=== PATIENT | male | born 1990 | race Caucasian/White ===

== ENCOUNTER 2016-11-27 07:10 | Emergency (ER) | payer OTHER ==
[~2016-11-27] VITALS: Ht 185.4 cm; Wt 78.2 kg
[~2016-11-27 07:10] MED LIST: QUET1TAB34 PO
[2016-11-27 07:15] VITALS: TEMP 36.8; Ht 185.4 cm; Wt 78.2 kg
[2016-11-27] MEDS ORDERED: XYLOCAINE 1%/SOD BICARB 20 ML VIAL INFIL ONE (07:30)
--- NOTE | 2016-11-27 07:37 | EMERGENCY ROOM VISIT NOTE ---
ED Visit Note First contact with patient: 07:16 CHIEF COMPLAINT: Finger laceration HISTORY OF PRESENT ILLNESS: This 26-year-old male patient presents to the emergency department ambulatory after cutting the right fifth finger just prior to arrival when he slipped and caught his finger on a metal shower ye. The bleeding has stopped. Denies weakness or numbness of the finger. The patient has full range of motion of the fingers. The patient denies any pain. The patient denies any other injuries. The patient's tetanus shot is up to date. REVIEW OF SYSTEMS: A 6 system review of systems was completed with positives and pertinent negatives listed in the HPI. ALLERGIES: No known drug allergies MEDICATIONS: Seroquel PMH: None SOCIAL HISTORY: The patient lives locally. He does not smoke PHYSICAL EXAM: Vital Signs: Reviewed Nurse's notes, vital signs stable. GENERAL : This is a 26-year-old male, in no acute distress, well developed, well nourished. SKIN: There is a 1 cm long flap-like laceration on the dorsal aspect of the left fifth finger. The edges gape apart with traction. There is no foreign material in the wound and it looks clean. There is no significant bleeding. No deep structures such as tendons, bones, or nerves are seen in the base of the wound. Extension and flexion of the finger is full and strong. Full range of motion of the wrist and other fingers. Capillary refill less than 2 seconds. Normal sensation to light and sharp touch. EMERGENCY DEPARTMENT COURSE: I examined the patient. Using sterile technique the wound was cleaned with Betadine. 2 ml of 1% buffered lidocaine was used to infiltrate the wound to anesthetize the patient. The area was sterilely draped. Once the patient was numb, the wound was copiously irrigated under pressure with sterile saline. The wound was explored and there were no deep structures such as tendons, bone, or ligaments present. The laceration was repaired using 4 simple interrupted 5-0 nylon sutures. The patient tolerated the procedure well. The bleeding stopped. The area was cleaned with sterile saline and dressed with bacitracin ointment and bandage. Given the location of the laceration over the PIP joint, a metal splint was placed. The patient was discharged home in good condition. DIAGNOSIS: Finger laceration DISCHARGE INSTRUCTIONS & TREATMENT: Keep wound clean and dry. Do not allow any crusting or dried blood to accumulate on sutures. If this occurs, use a 1:1 solution of hydrogen peroxide/water on a Q-tip to clean the wound. Use an antibiotic ointment for 3-4 days, then let wound dry. Suture removal in 10-12 days. Return sooner for any signs of infection (increasing redness, swelling, drainage). Ice and elevate for swelling and pain. Ibuprofen 600 mg every 6 hrs for pain. Keep covered when in sun until sutures removed then SPF 50 or higher for one year. Vitamin E oil if desired two weeks after suture removal for reduction of scar. Problem List Medical Problems: (1) Asthma Status: Chronic Current/Historical Medications Scheduled Quetiapine Fumarate (Seroquel), 150 MG PO HS Allergies Coded Allergies: No Known Allergies (Unverified , 11/27/16) Vital Signs Date Time Temp Pulse Resp B/P (MAP) Pulse Ox O2 Delivery O2 Flow Rate FiO2 11/27/16 08:01 75 16 135/72 96 11/27/16 07:15 36.8 81 18 140/86 94 Room Air Departure Information Impression Primary Impression: Laceration of finger Dispostion Home / Self-Care Condition GOOD Referrals No Doctor, Assigned (PCP) Forms HOME CARE DOCUMENTATION FORM, IMPORTANT VISIT INFORMATION, Work Instructions Return To Work: 2 days Patient Instructions ED Laceration All, My [facility] Additional Instructions Keep wound clean and dry. Do not allow any crusting or dried blood to accumulate on sutures. If this occurs, use a 1:1 solution of hydrogen peroxide/ water on a Q-tip to clean the wound. Use an antibiotic ointment for 3-4 days, then let wound dry. Suture removal in 10-12 days. Return sooner for any signs of infection (increasing redness, swelling, drainage). Ice and elevate for swelling and pain. Ibuprofen 600 mg every 6 hrs for pain. Keep covered when in sun until sutures removed then SPF 50 or higher for one year. Vitamin E oil if desired two weeks after suture removal for reduction of scar. Problem Qualifiers Primary Impression: Laceration of finger
[2016-11-27 08:01] VITALS: BP 135/72; PULSE 75; O2SAT 96
== END 2016-11-27 08:02 | disposition home or self-care (01) ==
LOC: C.EDB 07:11 → C.EDA 08:02
DX: S61.216A Laceration without foreign body of right little finger without damage to nail, initial encounter (principal); W45.8XXA Other foreign body or object entering through skin, initial encounter; Y92.89 Other specified places as the place of occurrence of the external cause; J45.909 Unspecified asthma, uncomplicated

== ENCOUNTER 2016-12-09 16:46 | Emergency (ER) | payer OTHER ==
[~2016-12-09] VITALS: Ht 185.4 cm; Wt 78.8 kg
[2016-12-09 16:52] VITALS: BP 144/90; PULSE 108; TEMP 36.7; O2SAT 96; Ht 185.4 cm; Wt 78.8 kg
[2016-12-09] MEDS ORDERED: CEPH500C2 PO (17:05)
[2016-12-09] MEDS ORDERED: TRAM-10 PO (17:05)
--- NOTE | 2016-12-10 22:45 | EMERGENCY ROOM VISIT NOTE ---
ED Visit Note First contact with patient: 16:55 CHIEF COMPLAINT: Suture removal. HISTORY OF PRESENT ILLNESS: Mr. Davila is a 26-year-old white male who ambulates into the ED requesting suture removal. Patient reports 12 days ago he sustained a laceration to the right little finger that was closed with sutures. He reports initially it was feeling well and he was not having any problems then within the last 24 hours he has noted increasing redness and swelling around the suture line and the entire finger. This was associated with increasing pain. Currently he describes his pain as a throbbing and sharp sensation. He rates his discomfort 10/10. The pain is extending into the MCP joint. This pain worsens with palpation and flexion of the MCP, PIP and DIP joint. He has not taken any medications for pain prior to arrival at the hospital. He denies any associated fevers, chills or red streaking. He also denies that there is any numbness and tingling in the little finger. REVIEW OF SYSTEMS: As noted above in History of Present Illness. PHYSICAL EXAM: Vital Signs: Date Time Temp Pulse Resp B/P (MAP) Pulse Ox O2 Delivery O2 Flow Rate FiO2 12/09/16 16:52 36.7 108 18 144/90 96 Room Air General: 26-year-old white male in moderate distress due to pain, nontoxic- appearing, afebrile and hemodynamically stable. Neurological: Awake, alert and oriented 3. Answering questions appropriately and following commands. Right Little Finger: No gross bony deformity. Around patient suture line there is a moderate amount of erythema and edema. There is no palpable abscesses. Because of the onset of swelling he has decreased range of motion in the PIP and DIP joint. There is no lymphangitis is noted above. Capillary refill was brisk. He was able to distinguish light sensations through all dermatomes. ED COURSE: Patient is assessed as noted above. Because of the recent infection and increasing pain and swelling I felt was better to delay removing the sutures until he was feeling better. Patient was educated about today's findings and instructed on his treatment plan ; he verbalizes understanding and agreement with this plan. DISPOSITION: Patient discharged home in stable condition. CLINICAL IMPRESSION: Wound infection. PLAN: Patient was encouraged to continue current treatment plan as far as wound care and watch for worsening signs of infection. Patient was prescribed Ultram 50 mg every 6 hours as needed for pain. Patient was encouraged return the ED or follow-up with his PCP for recheck in 2- 3 days and possible suture removal. Patient was encouraged return ED for worsening signs of infection or any new/ concerning symptoms.
== END 2016-12-09 17:11 | disposition home or self-care (01) ==
LOC: C.EDB 16:47 → C.EDD 17:11
DX: L08.89 Other specified local infections of the skin and subcutaneous tissue (principal); S61.216D Laceration without foreign body of right little finger without damage to nail, subsequent encounter; X58.XXXD Exposure to other specified factors, subsequent encounter

== ENCOUNTER 2017-03-31 17:38 | Emergency (ER) | payer OTHER ==
[~2017-03-31] VITALS: Ht 182.9 cm; Wt 77.3 kg
[~2017-03-31 17:38] MED LIST changes: +CYCL10TA6 PO; +IBUP-1428 PO; +QUET1TAB32 PO; -QUET1TAB34 PO
[2017-03-31 17:44] VITALS: TEMP 37.1; Ht 182.9 cm; Wt 77.3 kg
[2017-03-31] MEDS ORDERED: ACETAMINOPHEN 500 MG TAB PO STA (18:04)
[2017-03-31] MEDS ORDERED: IBUPROFEN 800 MG TAB PO STA (18:04)
--- NOTE | 2017-03-31 18:05 | EMERGENCY ROOM VISIT NOTE ---
History Report prepared by Laurenibmerced: Razia Hannon Under the Supervision of: Dr. Patrick Yip M.D. First contact with patient: 17:51 Chief Complaint: FLU LIKE SX Stated Complaint: BODY ACHES, FEVER,HOT FLASH,COLD SWEATS History of Present Illness The patient is a 26 year old white male with a past medical history of asthma who presents to the ED with a cc of persistent flu like symptoms beginning approximately 10 days ago. Positive fever, chills, diaphoresis, headache, productive cough, sore throat, body aches, chest discomfort, diarrhea, recent sick contacts. Negative recent travel, recent antibiotic use, pain or swelling in the legs. Ibuprofen has provided minimal relief for his body aches. Ruthann [place] has helped with chest discomfort. The patient admits he is a current smoker. He reports he takes daily Seroquel to help him sleep. He did not receive a flu shot this year. 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 A total of ten systems were reviewed and were otherwise negative. Past Medical & Surgical Medical Problems: (1) Asthma Family History Cancer Diabetes mellitus Heart disease Hypertension Social History Smoking Status: Never Smoker Alcohol Use: none Drug Use: none Marital Status: single Housing Status: lives alone Occupation Status: employed Current/Historical Medications Scheduled Amoxicillin & Pot Clavulanate (Augmentin 875-125 mg), 1 TAB PO BID Benzonatate (Tessalon Perles), 1 CAP PO TID Quetiapine Fumarate (Seroquel), 150 MG PO HS Scheduled PRN Ibuprofen Tab (Advil), 200-600 MG PO Q4H PRN for Pain Allergies Coded Allergies: No Known Allergies (Unverified , 03/26/17) Physical Exam Vital Signs Date Time Temp Pulse Resp B/P (MAP) Pulse Ox O2 Delivery O2 Flow Rate FiO2 03/31/17 17:44 37.1 110 18 144/83 97 Room Air Physical Exam GENERAL: Awake, alert, well-appearing, NAD HENT: Normocephalic, atraumatic. Posterior oropharynx is clear. No pharyngeal or uvular deviation. EYES: Normal conjunctiva. Sclera non-icteric. NECK: Supple. No nuchal rigidity. FROM. No stridor. RESPIRATORY: CTAB, no rhonchi, wheezing, crackles CARDIAC: Tachycardic heart rate, regular rhythm, no MRG ABDOMEN: Soft, NTND, BS+ MSK: No chest wall TTP, no LE edema NEURO: GCS 15, CN 2-12 intact, moves all 4s on command SKIN: No rash or jaundice noted. Medical Decision & Procedures Medications Administered Medications (Trade) Dose Ordered Sig/Feliberto Route Start Time Stop Time Status Last Admin Dose Admin Ibuprofen (Motrin Tab) 800 mg ONE STAT PO 03/31/17 18:04 03/31/17 18:06 DC 03/31/17 18:32 800 MG Acetaminophen (Tylenol Tab) 1,000 mg NOW STAT PO 03/31/17 18:04 03/31/17 18:06 DC 03/31/17 18:32 1,000 MG Benzonatate (Tessalon Perles Cap) 100 mg NOW ONCE PO 03/31/17 18:15 03/31/17 18:16 DC 03/31/17 18:32 100 MG Amoxicillin/ Clavulanate Potassium (Augmentin Tab) 875 mg NOW ONCE PO 03/31/17 18:15 03/31/17 18:16 DC 03/31/17 18:32 875 MG ED Course 1755: The patient was evaluated in room C5. A complete history and physical exam was performed. 1850: I reevaluated the patient. He is feeling much better. I discussed his results and discharge instructions and he verbalized complete understanding and agreement. Medical Decision The patient is a 26 year old white male with a past medical history of asthma who presents to the ED with a cc of persistent flu like symptoms beginning approximately 10 days ago. Triage Nursing notes reviewed. The patient's presentation and history were concerning for flu like symptoms. Differential diagnosis: Etiologies such as viral syndrome, otitis, pharyngitis, pneumonia, influenza, meningitis, urinary tract infection, sepsis, bacteremia, as well as others were entertained. Patient was seen and evaluated the bedside. Patient was complaining of some viral type symptoms but also complained of some productive sputum. I explained the patient that we could do workup to treat him empirically. Patient is to be treated empirically as it would likely not alter management care as he would likely be an outpatient treatment candidate. Patient did have some mild tachycardia. Patient was given by mouth fluids as well as Motrin, Tylenol, Augmentin instead of Zithromax given his Seroquel use for bronchitis, and Tessalon Perles. Upon reassessment patient was feeling mildly improved. Patient was told to follow up as an outpatient and continue good hydration and avoid caffeinated beverages as well as alcohol and tobacco. Patient was told that if he doesn't get any better and next 48 hours he should consider returning or if he has any fever, chills or he is unable to tolerate fluids or his medications. Patient was deemed suitable for outpatient discharge at this time as he is a young healthy male is nontoxic in appearance. Patient was given strict follow-up, discharge, and return precautions. All questions were answered. Patient was deemed suitable for outpatient follow-up at this time. Patient agreed with the plan of care and was safely discharged home. Medication Reconcilliation Current Medication List: was personally reviewed by me Blood Pressure Screening Patient's blood pressure: Elevated blood pressure Blood pressure disposition: Elevated BP felt to be situational Impression Primary Impression: Bronchitis Additional Impression: Viral syndrome Scribe Attestation The scribe's documentation has been prepared under my direction and personally reviewed by me in its entirety. I confirm that the note above accurately reflects all work, treatment, procedures, and medical decision making performed by me. Departure Information Dispostion Home / Self-Care Prescriptions Benzonatate (TESSALON PERLES) 100 Mg Cap 1 CAP PO TID for 7 Days, #21 CAP Prov: Patrick Yip M.D. 03/31/17 Amoxicillin & Pot Clavulanate (Augmentin 875-125 mg) 1 Tab Tab 1 TAB PO BID for 7 Days, #14 TAB Prov: Patrick Yip M.D. 03/31/17 Referrals No Doctor, Assigned (PCP) Patient Instructions Bronchitis Acute, My [facility] Additional Instructions Please return to the emergency department if you have worsening or recurrent symptoms not amenable to at-home treatment. Please call for a follow-up appointment with her primary care physician. Please take your medications as prescribed. If you have other concerns and/or complaints please feel free to also call your primary care physician's office or return the ED for further evaluation, management, and treatment. You may take 600 mg Ibuprofen every 6 hours as needed for pain with food for no more than 2 consecutive days. You may take tylenol 1000 mg every 6 hours as needed for pain. You may take motrin and tylenol separately or at the same time. Take the tessalon perrles as you may need it. Also try salt water gargles, honey /lemon tea and good hydration. You may try immodium for diarrhea as needed but do not take more than recommended. Take your medications as prescribed. If taking an antibiotic consider taking a probiotic and/or eating yogurt, but at the least, please take with food as it can cause upset stomach. You have been examined and treated today on an emergency basis only. This is not a substitute for, or an effort to provide, complete comprehensive medical care. It is impossible to recognize and treat all injuries or illnesses in a single emergency department visit. It is therefore important that you follow up closely with [facility], your PCP, and/or your specialist(s). Call as soon as possible for an appointment. Thank you for your time and consideration. I look forward to speaking with you again soon. Please don't hesitate to call us if you have any questions. Problem Qualifiers
[2017-03-31] MEDS ORDERED: IBUP-103 PO (18:09)
[2017-03-31] MEDS ORDERED: AMOXICILLIN/CLAVULANATE TAB 875 MG TAB PO ONE (18:15)
[2017-03-31] MEDS ORDERED: BENZONATATE 100MG CAP PO ONE (18:15)
[2017-03-31] MEDS ORDERED: BENZ100C18 PO (18:59)
[2017-03-31] MEDS ORDERED: AMOX875T PO (18:59)
[2017-03-31 19:29] VITALS: BP 135/82; PULSE 82; O2SAT 97
== END 2017-03-31 19:29 | disposition home or self-care (01) ==
LOC: C.EDB 17:39 → C.EDC 19:29
DX: J20.9 Acute bronchitis, unspecified (principal); J45.909 Unspecified asthma, uncomplicated; F17.200 Nicotine dependence, unspecified, uncomplicated; R40.2412 Glasgow coma scale score 13-15, at arrival to emergency department; R03.0 Elevated blood-pressure reading, without diagnosis of hypertension; Z83.3 Family history of diabetes mellitus; Z82.49 Family history of ischemic heart disease and other diseases of the circulatory system

== ENCOUNTER 2017-06-28 22:41 | Emergency (ER) | payer OTHER ==
[~2017-06-28] VITALS: Ht 182.9 cm; Wt 80.0 kg
[~2017-06-28 22:41] MED LIST changes: -CYCL10TA6 PO; +IBUP-103 PO; -IBUP-1428 PO
[2017-06-28 22:49] VITALS: TEMP 36.9; Ht 182.9 cm; Wt 80.0 kg
[2017-06-29 00:14] LABS: INFLUENZA B ANTIGEN Neg for Influ B (NEG)
[2017-06-29 00:33] VITALS: BP 130/93; PULSE 80; O2SAT 98
[2017-06-29] MEDS ORDERED: ACETAMINOPHEN 500 MG TAB PO STA (00:34)
--- NOTE | 2017-06-29 00:54 | EMERGENCY ROOM VISIT NOTE ---
History First contact with patient: 22:55 Chief Complaint: FLU LIKE SX Stated Complaint: FEVER,SEVERE DING,SORE THROAT,RUNNY NOSE History of Present Illness The patient is a 26 year old male who presents to the Emergency Room with complaints of cold symptoms and headache. The patient states that he has had cold symptoms for 1.5 weeks. He states he has had nasal congestion and cough. He reports that he has had headaches off and on for the past 1 week. He has taken ibuprofen and Tylenol without relief. The headaches are located in the back in front of his head. He states that his father was very concerned due to a family history of stroke. The patient rates his overall discomfort a 10/10. He states this is not the worst headache of his life. He denies neck pain/ stiffness or fevers. He denies nausea/vomiting, numbness, weakness, blurred vision or slurred speech. Review of Systems A complete 10 point review of systems was reviewed with the patient with pertinent positives and negatives as per history of present illness. All else were negative. Past Medical/Surgical History Medical Problems: (1) Asthma Family History Cancer Diabetes mellitus Heart disease Hypertension Social History Smoking Status: Never Smoker Alcohol Use: none Drug Use: none Marital Status: single Housing Status: lives alone Occupation Status: employed Current/Historical Medications Scheduled Quetiapine Fumarate (Seroquel), 150 MG PO HS Scheduled PRN Ibuprofen Tab (Advil), 200-600 MG PO Q4H PRN for Pain Physical Exam Vital Signs Date Time Temp Pulse Resp B/P (MAP) Pulse Ox O2 Delivery O2 Flow Rate FiO2 06/29/17 00:33 80 18 130/93 98 Room Air 06/28/17 22:49 36.9 82 16 138/98 98 Room Air Physical Exam VITALS: Vitals are noted on the nurse's note and reviewed by myself. Vital signs stable. GENERAL: This is a 26-year-old male, in no acute distress, nondiaphoretic, well- developed well-nourished. SKIN: The skin was without rashes. HEAD: Normocephalic atraumatic. EARS: External auditory canals clear, tympanic membranes pearly vela without erythema or effusion bilaterally. EYES: Pupils equal round and reactive to light and accommodation. Extraocular movements intact. NOSE: Patent, turbinates without inflammation or discharge. MOUTH: Mucous membranes moist. Tonsils are not enlarged. Pharynx without erythema or exudate. NECK: Supple without nuchal rigidity. No lymphadenopathy. HEART: Regular rate and rhythm without murmurs gallops or rubs. LUNGS: Clear to auscultation bilaterally without wheezes, rales or rhonchi. No retractions or accessory muscle use. MUSCULOSKELETAL: Strength 5/5 throughout. NEURO: Patient was alert and oriented to person place and time. No focal neurological deficits. Medical Decision & Procedures ER Provider Diagnostic Interpretation: CT HEAD: Normal exam. Radiologist: Carmel Ruiz MD Laboratory Results Test 06/28/17 23:19 Influenza Type A Antigen Neg for Influ A (NEG) Influenza Type B Antigen Neg for Influ B (NEG) Medications Administered Medications (Trade) Dose Ordered Sig/Feliberto Route Start Time Stop Time Status Last Admin Dose Admin Acetaminophen (Tylenol Tab) 1,000 mg NOW STAT PO 06/29/17 00:34 06/29/17 00:35 DC 06/29/17 00:42 1,000 MG Medical Decision The differential diagnosis includes acute intracranial bleed, meningitis, encephalitis, mass or mass effect, sinusitis, infection, tumor, headache, temporal arteritis and carbon monoxide exposure, and migraine. The patient is a 26-year-old male who presents today complaining of headache and cold symptoms. There is no evidence of meningitis or encephalitis on exam. Patient is afebrile. CT of the head was performed and was unremarkable. He was given Tylenol for pain. His headache may be secondary to the viral illness and nasal congestion. He was advised to take Sudafed and [id number] treatments for headache. Flu swab was negative. Based on the patient's presentation and work up, I feel the patient is stable for outpatient treatment. The patient was educated to return to the emergency department for any worsening of their current condition or new/concerning symptoms. He will follow up with his PCP. Medication Reconcilliation Current Medication List: was personally reviewed by me Blood Pressure Screening Patient's blood pressure: Normal blood pressure Impression Primary Impression: Headache Additional Impression: Viral upper respiratory infection Departure Information Dispostion Home / Self-Care Condition GOOD Referrals No Doctor, Assigned (PCP) Patient Instructions My [facility] Additional Instructions You have been treated in the Emergency Department for a Headache and cold symptoms. For pain control, you can use the following [id number] medicines (if >12 yo): - Regular strength (325mg/tab) Tylenol (acetaminophen) 2 tabs every 4-6 hours as needed. Do not exceed 12 tablets in a 24 hour period. Avoid taking more than 4 grams (4000 mg) of Tylenol per day. This includes any other sources of acetaminophen you may take on a regular basis. - Regular strength (200 mg/tab) Advil (ibuprofen) 1-2 tabs every 4-6 hours as needed. Do not exceed a dose of 3200 mg per day. You may try taking Sudafed (pseudoephedrine) [id number] for your symptoms. You should schedule a follow-up appointment in 2-3 days with your Primary Care Provider or established Neurologist for further evaluation and treatment of your Headache. Return to the Emergency Department if your current symptoms worsen despite treatment course outlined above, or if you develop any of the following symptoms : intractable pain despite aforementioned treatment course, visual disturbances , loss of vision, unilateral weakness or facial drooping, slurring of speech, loss of coordination, or loss of consciousness. Problem Qualifiers Primary Impression: Headache Headache type: unspecified Headache chronicity pattern: unspecified pattern Intractability: not intractable Qualified Codes: R51 - Headache
--- NOTE | 2017-06-29 06:32 | DIAGNOSTIC IMAGING REPORT ---
CT HEAD WITHOUT CONTRAST (CT) CLINICAL HISTORY: headaches, off and on x 1 week COMPARISON STUDY: No previous studies for comparison. TECHNIQUE: Axial CT of the brain is performed from the vertex to the skull base. IV contrast was not administered for this examination. A dose lowering technique was utilized adhering to the principles of ALARA. CT DOSE: 537.48 mGy.cm FINDINGS: No intra or extra-axial mass lesions are visualized. There is no CT evidence of acute cortical infarction. There is no evidence of midline shift. There is no acute hemorrhage. No calvarial fractures are visualized. There is no evidence of pathologic ventricular dilatation. There is no evidence of acute sinusitis IMPRESSION: Normal noncontrast head CT. Electronically signed by: Lamont Hong M.D. 06/29/2017 6:30 AM Dictated Date/Time: 06/29/2017 6:30 AM
== END 2017-06-29 01:01 | disposition home or self-care (01) ==
LOC: C.EDB 22:42 → C.EDC 06-29 01:01
DX: R51 Headache (principal); J06.9 Acute upper respiratory infection, unspecified; J45.909 Unspecified asthma, uncomplicated; Z83.3 Family history of diabetes mellitus; Z82.49 Family history of ischemic heart disease and other diseases of the circulatory system